=== PATIENT | male | born 1980 | race Caucasian/White ===

== ENCOUNTER 2017-11-11 06:13 | Emergency (ER) | payer OTHER, BC ==
[2017-11-11 06:48] LABS: BEDSIDE GLUCOSE 137 MG/DL (70-105)
[2017-11-11 07:01] LABS: BEDSIDE GLUCOSE 126 MG/DL (70-105)
[2017-11-11] MEDS: LORazepam 2 MG/ML VIAL (J2060) IM ×2 (07:04)
[2017-11-11] MEDS: KETOROLAC 30 MG/ML VIAL (J1885) IV ×2 (07:42)
[2017-11-11 07:59] LABS: BASO % 0.5 % (0.0-1.0); EOS % 0.4 % (0.0-3.0); HEMATOCRIT 43.9 % (42.0-52.0); HEMOGLOBIN 15.3 g/dl (13.5-17.5); IMMATURE GRANULOCYTE % 0.4 % (0-3.0); LYMPH # 0.8 10^3/uL (1.5-4.5); LYMPH % 10.3 % (24.0-44.0); MEAN CORPUSCULAR HGB CONC 34.9 g/dl (32.0-36.5); MEAN CORPUSCULAR VOLUME 88.9 fl (80.0-96.0); MONO # 0.5 10^3/uL (0.0-0.8); MONO % 7.2 % (0.0-5.0); NEUTROPHILS % 81.2 % (36.0-66.0); PLATELET COUNT, AUTOMATED 209 10^3/uL (150-450); RED BLOOD COUNT 4.94 10^6/uL (4.30-6.10); RED CELL DISTRIBUTION WIDTH 12.7 % (11.5-14.5); WHITE BLOOD COUNT 7.5 10^3/uL (4.0-10.0)
[2017-11-11 08:13] LABS: D-DIMER QUANT 369.2 ng/ml (<500)
[2017-11-11 08:37] LABS: ALBUMIN 4.4 GM/DL (3.2-5.2); ALBUMIN/GLOBULIN RATIO 1.05 (1.00-1.93); ALKALINE PHOSPHATASE 132 U/L (45-117); ALT/SGPT 182 U/L (12-78); ANION GAP 11 MEQ/L (8-16); AST/SGOT 174 U/L (7-37); BILIRUBIN,DIRECT 0.3 MG/DL (0.0-0.2); BLOOD UREA NITROGEN 15 MG/DL (7-18); CALCIUM LEVEL 9.3 MG/DL (8.5-10.1); CARBON DIOXIDE LEVEL 24 MEQ/L (21-32); CHLORIDE LEVEL 104 MEQ/L (98-107); CPK CREATINE PHOSPHOKINASE 422 U/L (39-308); CREATININE FOR GFR 0.81 MG/DL (0.70-1.30); GLOMERULAR FILTRATION RATE > 60.0 (>60); GLUCOSE, FASTING 124 MG/DL (70-100); POTASSIUM SERUM 3.5 MEQ/L (3.5-5.1); SODIUM LEVEL 139 MEQ/L (136-145); TOTAL PROTEIN 8.6 GM/DL (6.4-8.2); TROPONIN I < 0.02 NG/ML (< 0.10)
[2017-11-11 08:43] LABS: CK-MB VALUE MASS 1.8 NG/ML (<3.6); MB/CK RELATIVE INDEX 0.42 (< OR =4)
[2017-11-11 08:45] LABS: ESTIMATED AVERAGE GLUCOSE 117 MG/DL (60-110); HEMOGLOBIN A1c 5.7 %
[2017-11-11] MEDS: CHLORTHALIDONE 12.5MG PER 1/2 TABLET PO ×2 (09:54)
[2017-11-12 09:20] LABS: HEPATITIS B SURFACE ANTIGEN NEGATIVE (NEGATIVE)
[2017-11-12 09:48] LABS: HEPATITIS C VIRUS ABY INDEX 0.1 INDEX (<0.8)
[2017-11-12 09:48] LABS: HEPATITIS B CORE ANTIBODY IGM NEGATIVE (NEGATIVE)
[2017-11-12 09:50] LABS: HEPATITIS A ANTIBODY IGM NEGATIVE (NEGATIVE)
== END 2017-11-11 10:58 | disposition home or self-care (01) ==
LOC: M ED 06:13
DX: F41.9 Anxiety disorder, unspecified (principal); Z79.899 Other long term (current) drug therapy
CPT/HCPCS: J1885

== ENCOUNTER 2018-01-05 11:08 | Emergency (ER) | payer OTHER ==
[2018-01-05] MEDS: NORCO, ANEXSIA 5/325MG TABLET (HYDROcodone/ACETAMINOPHEN) PO (11:46)
[2018-01-05] MEDS: LIDOCAINE VISCOUS 2% SOLN 15ML UDC SSP (11:46)
== END 2018-01-05 11:55 | disposition home or self-care (01) ==
LOC: M ED 11:08
DX: K04.7 Periapical abscess without sinus (principal); L03.211 Cellulitis of face; I10 Essential (primary) hypertension; Z79.899 Other long term (current) drug therapy
CPT/HCPCS: 99282

== ENCOUNTER → 2018-01-10 | Outpatient (REF) | payer OTHER ==
[2018-01-10 20:09] LABS: ALBUMIN 4.4 GM/DL (3.2-5.2); ALKALINE PHOSPHATASE 164 U/L (45-117); ALT/SGPT 238 U/L (12-78); ANION GAP 10 MEQ/L (8-16); AST/SGOT 269 U/L (7-37); BILIRUBIN,TOTAL 0.6 MG/DL (0.2-1.0); BLOOD UREA NITROGEN 8 MG/DL (7-18); CALCIUM LEVEL 9.1 MG/DL (8.5-10.1); CARBON DIOXIDE LEVEL 28 MEQ/L (21-32); CHLORIDE LEVEL 97 MEQ/L (98-107); CHOLESTEROL LEVEL 295 MG/DL (<200); CHOLESTEROL RISK RATIO 2.322 (<5); CREATININE FOR GFR 0.99 MG/DL (0.70-1.30); GLOMERULAR FILTRATION RATE > 60.0 (>60); GLUCOSE, FASTING 159 MG/DL (70-100); HDL CHOLESTEROL 127 MG/DL (>40); NON-HDL-C 168 MG/DL; POTASSIUM SERUM 3.8 MEQ/L (3.5-5.1); SODIUM LEVEL 135 MEQ/L (136-145); TOTAL PROTEIN 8.8 GM/DL (6.4-8.2); TRIGLYCERIDES LEVEL 95 MG/DL (<150)
== END ==
LOC: M SFHCADAM 12:56
DX: K76.0 Fatty (change of) liver, not elsewhere classified (principal)
CPT/HCPCS: 80053

== ENCOUNTER → 2018-04-27 | Outpatient (CLI) | payer OTHER ==
[2018-04-27 17:50] LABS: ALBUMIN 4.5 GM/DL (3.2-5.2); ALBUMIN/GLOBULIN RATIO 1.18 (1.00-1.93); ALKALINE PHOSPHATASE 103 U/L (45-117); ALT/SGPT 111 U/L (12-78); AST/SGOT 71 U/L (7-37); BILIRUBIN,DIRECT 0.2 MG/DL (0.0-0.2); BILIRUBIN,TOTAL 0.6 MG/DL (0.2-1.0); FERRITIN 189 NG/ML (26-388); GAMMA GLUTAMYLTRANSPEPTIDASE 191 U/L (15-85); IRON (FE) 90 UG/DL (65-175); PERCENT SATURATION 21.2 % (19.7-50.0); TOTAL IRON BINDING CAPACITY 425 UG/DL (250-450); TOTAL PROTEIN 8.3 GM/DL (6.4-8.2)
[2018-04-29 11:43] LABS: HEPATITIS B SURFACE ANTIBODY POSITIVE (POSITIVE)
[2018-05-01 00:08] LABS: ALPHA 1 ANTITRYPSIN 133 mg/dL (90-200); ANTI-MITOCHONDRIAL ANTIBODY 3.7 Units (0.0-20.0); ANTINUCLEAR ANTIBODIES DIRECT Negative (Negative); HEPATITIS A IgG TOTAL Negative (Negative); LIVER-KIDNEY MICROSOMAL ABY 1.5 Units (0.0-20.0)
[2018-05-01 00:08] LABS: ANTI-SMOOTH MUSCLE ANTIBODY 10 Units (0-19)
== END ==
LOC: M ADAMS 14:52
DX: R94.5 Abnormal results of liver function studies (principal)
CPT/HCPCS: 82977

== ENCOUNTER → 2018-08-09 | Outpatient (REF) | payer OTHER ==
[~2018-08-09] MED LIST: BUSP10TA; CHLO125TA PO; CHLO25CA PO; CHLO25TA PO; CLEO300C2 PO; LEXA1TAB2 PO; LIDO1SOL7 SSP
[2018-08-09 19:39] LABS: ALBUMIN 4.2 GM/DL (3.2-5.2); ALT/SGPT 326 U/L (12-78); BILIRUBIN,TOTAL 0.5 MG/DL (0.2-1.0); BLOOD UREA NITROGEN 10 MG/DL (7-18); CALCIUM LEVEL 9.4 MG/DL (8.5-10.1); CARBON DIOXIDE LEVEL 28 MEQ/L (21-32); CHLORIDE LEVEL 98 MEQ/L (98-107); GLOMERULAR FILTRATION RATE > 60.0 (>60); GLUCOSE, FASTING 85 MG/DL (70-100); POTASSIUM SERUM 3.6 MEQ/L (3.5-5.1); SODIUM LEVEL 137 MEQ/L (136-145)
== END ==
LOC: M SFHCADAM 16:22
PROVIDERS: ATTEND Physician Assistant Medical
DX: K76.0 Fatty (change of) liver, not elsewhere classified (principal)

== ENCOUNTER → 2018-08-16 | Outpatient (REF) | payer OTHER | LOC: M SFHCADAM 14:15 | PROVIDERS: ATTEND Physician Assistant Medical | DX: F10.10 Alcohol abuse, uncomplicated (principal); K70.9 Alcoholic liver disease, unspecified ==

== ENCOUNTER → 2018-09-12 | Outpatient (CLI) | payer OTHER ==
[2018-09-12 20:05] LABS: BASO # 0.1 10^3/uL (0.0-0.2); BASO % 1.1 % (0.0-1.0); EOS # 0.3 10^3/uL (0.0-0.50); HEMOGLOBIN 16.1 g/dl (13.5-17.5); LYMPH # 1.8 10^3/uL (1.5-4.5); LYMPH % 26.3 % (24.0-44.0); MEAN CORPUSCULAR HEMOGLOBIN 31.1 pg (27.0-33.0); MEAN CORPUSCULAR HGB CONC 34.3 g/dl (32.0-36.5); MEAN CORPUSCULAR VOLUME 90.9 fl (80.0-96.0); MONO # 0.8 10^3/uL (0.0-0.8); MONO % 11.3 % (0.0-5.0); PLATELET COUNT, AUTOMATED 296 10^3/uL (150-450); RED BLOOD COUNT 5.17 10^6/uL (4.30-6.10)
[2018-09-12 20:13] LABS: ALBUMIN 4.3 GM/DL (3.2-5.2); BILIRUBIN,DIRECT 0.1 MG/DL (0.0-0.2); BILIRUBIN,TOTAL 0.5 MG/DL (0.2-1.0); TOTAL PROTEIN 7.7 GM/DL (6.4-8.2)
== END ==
LOC: M ADAMS 17:00
PROVIDERS: ATTEND Internal Medicine Gastroenterology
DX: R94.5 Abnormal results of liver function studies (principal)

== ENCOUNTER 2018-10-14 04:08 | Emergency (ER) | payer OTHER ==
[~2018-10-14] VITALS: Ht 177.8 cm; Wt 84.1 kg
[2018-10-14] MEDS ORDERED: CHLO125TA (04:17)
[2018-10-14] MEDS ORDERED: OXAZ10CA3 (04:17)
[2018-10-14] MEDS ORDERED: FLUO20CA19 (04:17)
[2018-10-14] MEDS ORDERED: VITA100T8 (04:17)
[2018-10-14] MEDS ORDERED: NS 1,000 ML IV ONE ×2 (04:45→07:15)
[2018-10-14 04:46] LABS: BASO # 0.1 10^3/uL (0.0-0.2); BASO % 0.3 % (0.0-1.0); EOS % 0.1 % (0.0-3.0); HEMATOCRIT 51.6 % (42.0-52.0); HEMOGLOBIN 18.6 g/dl (13.5-17.5); LYMPH # 1.6 10^3/uL (1.5-4.5); LYMPH % 10.4 % (24.0-44.0); MEAN CORPUSCULAR HEMOGLOBIN 30.4 pg (27.0-33.0); MEAN CORPUSCULAR VOLUME 84.5 fl (80.0-96.0); MONO % 6.7 % (0.0-5.0); NEUTROPHILS # 12.8 10^3/uL (1.8-7.7); PLATELET COUNT, AUTOMATED 314 10^3/uL (150-450); RED BLOOD COUNT 6.11 10^6/uL (4.30-6.10); WHITE BLOOD COUNT 15.6 10^3/uL (4.0-10.0)
[2018-10-14 05:13] LABS: ALBUMIN 4.6 GM/DL (3.2-5.2); ALT/SGPT 88 U/L (12-78); BILIRUBIN,DIRECT 0.4 MG/DL (0.0-0.2); BILIRUBIN,TOTAL 1.1 MG/DL (0.2-1.0); BLOOD UREA NITROGEN 17 MG/DL (7-18); CALCIUM LEVEL 9.3 MG/DL (8.5-10.1); CARBON DIOXIDE LEVEL 20 MEQ/L (21-32); CHLORIDE LEVEL 94 MEQ/L (98-107); CREATININE FOR GFR 1.23 MG/DL (0.70-1.30); GLOMERULAR FILTRATION RATE > 60.0 (>60); GLUCOSE, FASTING 154 MG/DL (70-100); LIPASE 145 U/L (73-393); POTASSIUM SERUM 3.1 MEQ/L (3.5-5.1); SODIUM LEVEL 135 MEQ/L (136-145); TOTAL PROTEIN 9.1 GM/DL (6.4-8.2)
[2018-10-14] MEDS ORDERED: LORazepam 2 MG/ML VIAL (J2060) IV STA (05:27)
[2018-10-14] MEDS ORDERED: ONDANSETRON 4MG/2ML VIAL (J2405) IV ONE (05:30)
[2018-10-14 05:32] LABS: ETHYL ALCOHOL (ETHANOL) 0.032 % (0.000-0.010)
[2018-10-14 06:45] LABS: VENOUS BASE EXCESS 1.6 (-2.0-2.0); VENOUS HCO3 23.5 MEQ/L (23.0-27.0); VENOUS O2 SATURATION 77.6 % (60.0-80.0); VENOUS PARTIAL PRESSURE CO2 30.7 mmHg (38.0-50.0); VENOUS PARTIAL PRESSURE O2 41.3 mmHg (30.0-50.0); VENOUS PH 7.502 UNITS (7.330-7.430); VENOUS STANDARD HCO3 25.2 MEQ/L; VENOUS TOTAL CO2 24.5 MEQ/L (24.0-28.0)
[2018-10-14] MEDS ORDERED: OXAZEPAM 15 MG CAP PO ONE (07:15)
[2018-10-14] MEDS ORDERED: POTASSIUM CHLORIDE 10 MEQ SR TABLET PO ONE (07:30)
[2018-10-14] MEDS ORDERED: ONDA4TAB6 PO (08:42)
[2018-10-14 08:45] VITALS: BP 138/88
== END 2018-10-14 09:03 | disposition home or self-care (01) ==
LOC: M ED 04:08
DX: F10.239 Alcohol dependence with withdrawal, unspecified (principal); R11.2 Nausea with vomiting, unspecified; Z79.899 Other long term (current) drug therapy
CPT/HCPCS: 80048; 80076; 82803; 83690; 85025; 96360; 96374; 96375; 99285; G0480; J2060; J2405

== ENCOUNTER → 2018-11-05 | Outpatient (REF) | payer OTHER ==
[~2018-11-05] MED LIST changes: +CHLO125TA; +FLUO20CA19; +ONDA4TAB6 PO; +OXAZ10CA3; +VITA100T8
[2018-11-05 19:45] LABS: HEMATOCRIT 43.4 % (42.0-52.0); HEMOGLOBIN 15.3 g/dl (13.5-17.5); MEAN CORPUSCULAR HEMOGLOBIN 31.3 pg (27.0-33.0); MEAN CORPUSCULAR HGB CONC 35.3 g/dl (32.0-36.5); MEAN CORPUSCULAR VOLUME 88.8 fl (80.0-96.0); PLATELET COUNT, AUTOMATED 438 10^3/uL (150-450); RED BLOOD COUNT 4.89 10^6/uL (4.30-6.10); WHITE BLOOD COUNT 8.3 10^3/uL (4.0-10.0)
[2018-11-05 20:05] LABS: ALT/SGPT 82 U/L (12-78); BILIRUBIN,TOTAL 0.3 MG/DL (0.2-1.0); BLOOD UREA NITROGEN 14 MG/DL (7-18); CALCIUM LEVEL 9.2 MG/DL (8.5-10.1); CARBON DIOXIDE LEVEL 31 MEQ/L (21-32); CHLORIDE LEVEL 103 MEQ/L (98-107); GLOMERULAR FILTRATION RATE > 60.0 (>60); GLUCOSE, FASTING 73 MG/DL (70-100); MAGNESIUM LEVEL 2.3 MG/DL (1.8-2.4); POTASSIUM SERUM 3.4 MEQ/L (3.5-5.1); SODIUM LEVEL 141 MEQ/L (136-145); TOTAL PROTEIN 7.6 GM/DL (6.4-8.2)
[2018-11-05 20:13] LABS: VITAMIN B12 LEVEL 744 PG/ML (247-911)
== END ==
LOC: M SFHCADAM 18:23
DX: K20.9 Esophagitis, unspecified (principal); K76.0 Fatty (change of) liver, not elsewhere classified; E87.6 Hypokalemia; F10.20 Alcohol dependence, uncomplicated

== ENCOUNTER → 2019-12-02 | Outpatient (REF) | payer OTHER ==
[~2019-12-02] MED LIST changes: -FLUO20CA19; +FLUO20CA22; -LIDO1SOL7 SSP; +LIDO2SOL17 SSP
[2019-12-02 17:40] LABS: HEMATOCRIT 48.2 % (42.0-52.0); HEMOGLOBIN 16.7 g/dl (13.5-17.5); MEAN CORPUSCULAR HEMOGLOBIN 31.7 pg (27.0-33.0); MEAN CORPUSCULAR HGB CONC 34.6 g/dl (32.0-36.5); MEAN CORPUSCULAR VOLUME 91.6 fl (80.0-96.0); PLATELET COUNT, AUTOMATED 282 10^3/uL (150-450); RED BLOOD COUNT 5.26 10^6/uL (4.30-6.10)
[2019-12-02 17:51] LABS: PROTHROMBIN TIME 12.9 SECONDS (11.8-14.0)
[2019-12-02 18:08] LABS: ALBUMIN 4.2 GM/DL (3.2-5.2); ALT/SGPT 341 U/L (12-78); BILIRUBIN,TOTAL 1.3 MG/DL (0.2-1.0); BLOOD UREA NITROGEN 7 MG/DL (7-18); CALCIUM LEVEL 9.4 MG/DL (8.5-10.1); CARBON DIOXIDE LEVEL 27 MEQ/L (21-32); CHLORIDE LEVEL 99 MEQ/L (98-107); CREATININE FOR GFR 0.87 MG/DL (0.70-1.30); GLOMERULAR FILTRATION RATE > 60.0 (>60); GLUCOSE, FASTING 109 MG/DL (70-100); MAGNESIUM LEVEL 1.7 MG/DL (1.8-2.4); POTASSIUM SERUM 3.7 MEQ/L (3.5-5.1); SODIUM LEVEL 136 MEQ/L (136-145); TOTAL PROTEIN 8.2 GM/DL (6.4-8.2)
[2019-12-02 18:10] LABS: VITAMIN B12 LEVEL 746 PG/ML (247-911)
== END ==
LOC: M SFHCADAM 15:50
PROVIDERS: ATTEND Family Medicine
DX: I10 Essential (primary) hypertension (principal); K70.9 Alcoholic liver disease, unspecified; E87.6 Hypokalemia

== ENCOUNTER 2020-12-02 15:43 | Inpatient (IN) | payer OTHER ==
[~2020-12-02] VITALS: Ht 177.8 cm; Wt 83.0 kg
[~2020-12-02 15:43] MED LIST changes: -FLUO20CA22; +FLUO20CA22 PO; -OXAZ10CA3; +OXAZ10CA3 PO
[2020-12-02] MEDS ORDERED: PANT40TA29 PO (16:00)
[2020-12-02] MEDS ORDERED: PROP60CA PO (16:00)
[2020-12-02] MEDS ORDERED: SUCR1ORA2 PO (16:00)
[2020-12-02] MEDS ORDERED: LORazepam 2 MG/ML VIAL IV STA (16:19)
[2020-12-02] MEDS ORDERED: NS 1,000 ML IV ONE (16:20)
[2020-12-02] MEDS ORDERED: KCL 10MEQ/100ML SWI (KRUN) 10 MEQ in IV 1 EA IV ONE (16:25)
[2020-12-02] MEDS ORDERED: POTASSIUM CHLORIDE 10 MEQ SR TABLET PO ONE (16:25)
[2020-12-02] MEDS ORDERED: ISOVUE-370 76% 100ML VIAL As Ordered ONE (16:32)
[2020-12-02 17:15] LABS: INR 1.09; PROTHROMBIN TIME 14.4 SECONDS (12.5-14.3)
--- NOTE | 2020-12-02 17:40 | REPVR ---
PROCEDURE INFORMATION: Exam: CT Abdomen And Pelvis With Contrast Exam date and time: 12/02/2020 5:07 PM Age: 40 years old Clinical indication: Condition or disease; Pancreatic condition; Pancreatitis TECHNIQUE: Imaging protocol: Computed tomography of the abdomen and pelvis with contrast. Axial, coronal and sagittal reformatted images were created and reviewed. Radiation optimization: All CT scans at this facility use at least one of these dose optimization techniques: automated exposure control; mA and/or kV adjustment per patient size (includes targeted exams where dose is matched to clinical indication); or iterative reconstruction. Contrast material: ISOVUE 370; Contrast volume: 100 ml; Contrast route: INTRAVENOUS (IV); COMPARISON: GALLBLADDER US 11/11/2017 9:11 AM FINDINGS: Liver: Mild hepatomegaly. Diffuse hepatic steatosis. Gallbladder and bile ducts: No radiodense gallstones. No biliary ductal dilatation. Pancreas: Questionable subtle edema adjacent to the uncinate process. Spleen: Unremarkable. Adrenal glands: Normal. No mass. Kidneys and ureters: No mass. No radiodense calculi. No hydronephrosis. Stomach and bowel: No bowel wall thickening. No obstruction. No pneumatosis. Appendix: Normal. Intraperitoneal space: No free fluid. No organized fluid collection. No free air. Vasculature: Unremarkable. No aneurysm. Lymph nodes: No pathologically enlarged lymph nodes. Urinary bladder: Unremarkable as visualized. Reproductive: Unremarkable. Bones/joints: No acute osseous abnormality. Soft tissues: Unremarkable. IMPRESSION: 1. Questionable subtle edema adjacent to the pancreatic uncinate process. Correlate with serum amylase and lipase levels. 2. Additional findings, as above. Electronically signed by: Gerald Andrews On 12/02/2020 17:40:17 PM
[2020-12-02 18:21] LABS: RSV AMPLIFICATION NEGATIVE (NEGATIVE)
[2020-12-02] MEDS ORDERED: MAALOX 30 ML SUSP *UDC PO PRN (19:00)
[2020-12-02] MEDS ORDERED: MORPHINE 2 MG/ML 1ML VIAL (J2270) IV PRN (19:00)
[2020-12-02] MEDS ORDERED: LORazepam 2 MG TAB PO PRN (19:00)
[2020-12-02] MEDS ORDERED: ONDANSETRON 4MG/2ML VIAL IV PRN (19:00)
[2020-12-02] MEDS ORDERED: MOM 30ML SUSPENSION UDC PO PRN (19:00)
[2020-12-02] MEDS ORDERED: ACETAMINOPHEN TAB 650MG DOSE (2X325MG) PO PRN (19:00)
[2020-12-02] MEDS ORDERED: LR 1,000 ML IV SCH (19:00)
--- NOTE | 2020-12-02 19:44 | HPEPDOC ---
[facility] Medical History & Physical Date of Admission Dec 02, 2020 Date of Service: Dec 02, 2020 Attending Physician: ELLEN KNAPP MD History and Physical CHIEF COMPLAINT: [40 y/o male presents to the ED after an appt with his pcp] HISTORY OF PRESENT ILLNESS: [This is a 40 y/o male with a pmh of htn, depression/anxiety and etoh abuse who presents to the ED today 12/02 after an appointment with his pcp. Patient is an alcoholic who recently quit drinking cold turkey on 11/29. Patient states that he began developing symptoms of tremu lousness, weakness, anxiety, nausea and vomiting that night and have not gotten any better. Patient states that these symptoms prompted him to make an appointment with his pcp. As of my evaluation, patient states that his primary complaints at the moment are his weakness, fatigue and tremulousness. Patient endorses abdominal pain in his RUQ only with movement, states that the pain is nil when he is still. The pain does not radiate. Patient also endorses some chest pain located in his lower sternum/epigastrum that comes and goes and does not radiate as well. Patient states that he is still having on and off nausea and vomiting, with his last episode of emesis being this morning. Patient denies fever, chills, syncope, seizures, hematemesis, hallucinations, diarrhea, constipation, paresthesias, headache, diplopia.] PAST MEDICAL HISTORY: 1. [Please see HPI PAST SURGICAL HISTORY: 1. [Reviewed - none SOCIAL HISTORY: Tobacco use:[Denies] ETOH: [5+ beers a day previously, stopped drinking 3 days ago] Illicit drug use: [Denies] FAMILY HISTORY: Prostate ca, htn, a-fib, dm ALLERGIES: Please see below. REVIEW OF SYSTEMS: CONSTITUTIONAL: [See HPI]. HEENT: [Denies URI sx]. CARDIOVASCULAR: [See HPI]. RESPIRATORY: [Denies sob, cough]. GASTROINTESTINAL: [See HPI]. GENITOURINARY: [Denies dysuria]. SKIN: [Denies rash]. MUSCULOSKELETAL: [Denies acute joint pain]. NEUROLOGICAL: [See HPI]. PSYCHIATRIC: [Admits to anxiety]. ENDOCRINE: [Denies hx of DM]. HEMATOLOGIC/LYMPHATIC: [Denies easy bruising]. HOME MEDICATIONS: Please see below. PHYSICAL EXAMINATION: VITAL SIGNS: Please see below GENERAL APPEARANCE: [This is a 40 year old male who is visibly tremulous. He is laying in bed in no respiratory distress.]. HEENT: [No mass or lesion. EOMI. Mild scleral icterus. Nares patent. Oral mucosa dry without erythema.]. CARDIOVASCULAR: [Tachy rate, regular rhythm. No murmurs, rubs, gallops]. LUNGS: [good air flow auscultated. no wheezing, rales, rhonchi.]. ABDOMEN: [Soft, mildly tender to ruq with deep palpation. no organomegaly appr eciated.]. MUSCULOSKELETAL: [No joint deformity]. EXTREMITIES: [No peripheral edema noted. No overlying skin changes. Pulses itn act.]. NEUROLOGICAL: [Sensation intact. Speech clear. A+Ox3. No focal deficits.]. PSYCHIATRIC: [Mood and affect appear appropriate.]. LABORATORY DATA: See below. IMAGING: [FINDINGS: Liver: Mild hepatomegaly. Diffuse hepatic steatosis. Gallbladder and bile ducts: No radiodense gallstones. No biliary ductal dilatation. Pancreas: Questionable subtle edema adjacent to the uncinate process. Spleen: Unremarkable. Adrenal glands: Normal. No mass. Kidneys and ureters: No mass. No radiodense calculi. No hydronephrosis. Stomach and bowel: No bowel wall thickening. No obstruction. No pneumatosis. Appendix: Normal. Intraperitoneal space: No free fluid. No organized fluid collection. No free air. Vasculature: Unremarkable. No aneurysm. Lymph nodes: No pathologically enlarged lymph nodes. Urinary bladder: Unremarkable as visualized. Reproductive: Unremarkable. Bones/joints: No acute osseous abnormality. Soft tissues: Unremarkable. IMPRESSION: 1. Questionable subtle edema adjacent to the pancreatic uncinate process. Correlate with serum amylase and lipase levels. 2. Additional findings, as above. ] MICROBIOLOGY: Please see below. ASSESSMENT: [This is a 40 y/o male with a pmh of htn, depression/anxiety and etoh abuse who quit drinking cold turkey 3 days ago and has been having symptoms of abdominal discomfort, nausea, vomiting, tremulousness, fatigue, weakness and anxiety. Patient saw his pcp who referred him to the ED after abnormal lab work. CT performed in the ED as stated above shows hepatic steatosis and questionable pancreatitis]. . PLAN: 1. [ETOH Withdrawal - [facility] protocol - Serax 20mg tid scheduled - Admit to PCU on tele 2. Mild acute alcoholic pancreatitis - Elevated amylase, lipase and pancreatic edema noted on ct abd/pelvis - Amylase, lipase ordered, will trend - Baseline electrolytes, liver enzymes ordered, will trend - Will begin maintenance fluids with LR 120mL/hr with 20meQ of K - IV zofran, IV protonix, carafate d/t several days of nausea and vomiting - Tylenol for mild pain, morphine for severe breakthrough pain - Clear liquid diet as patient is not having severe symptoms 3. Hypokalemia - Patient received 40 oral in ED, repeat K still 2.8 - Will give K in fluid as stated, will also give 40 oral now and tomorrow morning 0600 4. Alcoholic liver dz - AST to ALT ratio 2:1 indicative of alcoholic liver disease as well as liver steatosis on ct scan - Patient does not appear to be in decompensated liver failure - Will monitor 5. HTN - continue propranolol 6. Depression/anxiety - continue fluoxetine 7. DVT prophylaxis - teds and scds ]. Vital Signs Vital Signs Date Time Temp Pulse Resp B/P (MAP) Pulse Ox O2 Delivery O2 Flow Rate FiO2 12/02/20 18:50 108 18 141/83 (102) 95 Room Air 12/02/20 15:44 98.3 Laboratory Data Labs 24H Laboratory Tests 2 12/02/20 16:19: Prothrombin Time 14.4H, Prothromb Time International Ratio 1.09, Activated Partial Thromboplast Time 25.0, Gamma Glutamyl Transferase 1396H 12/02/20 16:26: Coronavirus (COVID-19)(PCR) NEGATIVE, Influenza Type A (RT-PCR) NEGATIVE, Influenza Type B (RT-PCR) NEGATIVE, Respiratory Syncytial Virus (PCR) NEGATIVE Home Medications Scheduled Fluoxetine Hcl (Fluoxetine HCl) 20 Mg Cap, 20 MG PO DAILY Oxazepam (Oxazepam) 10 Mg Cap, 10 MG PO TID Pantoprazole Sodium (Pantoprazole Sodium) 40 Mg Tablet.dr, 40 MG PO BID NEW MED - HAS NOT STARTED Propranolol HCl (Propranolol HCl ER) 60 Mg Cap.sa.24h, 60 MG PO DAILY NEW MED - HAS NOT STARTED Sucralfate (Sucralfate) 1 Gm/10 Ml Oral.susp, 10 ML PO ACHS NEW MED - HAS NOT STARTED Allergies Coded Allergies: No Known Allergies (Unverified , 11/11/17) A-FIB/CHADSVASC A-FIB History Current/History of A-Fib/PAF?: No LAWRENCE WRIGHT Dec 02, 2020 19:43
[2020-12-02 20:25] LABS: ALBUMIN 3.3 GM/DL (3.2-5.2); ALT/SGPT 211 U/L (12-78); AMYLASE 154 U/L (25-115); BILIRUBIN,TOTAL 2.7 MG/DL (0.2-1.0); BLOOD UREA NITROGEN 23 MG/DL (7-18); CALCIUM LEVEL 9.2 MG/DL (8.5-10.1); CARBON DIOXIDE LEVEL 31 MEQ/L (21-32); CHLORIDE LEVEL 89 MEQ/L (98-107); CK-MB VALUE MASS < 1.0 NG/ML (<3.6); CPK CREATINE PHOSPHOKINASE 267 U/L (39-308); CREATININE FOR GFR 0.97 MG/DL (0.70-1.30); GLOMERULAR FILTRATION RATE > 60.0 (>60); GLUCOSE, FASTING 124 MG/DL (70-100); LIPASE 1051 U/L (73-393); MB/CK RELATIVE INDEX 0.37 (< OR =4); POTASSIUM SERUM 2.8 MEQ/L (3.5-5.1); SODIUM LEVEL 131 MEQ/L (136-145); TOTAL PROTEIN 7.1 GM/DL (6.4-8.2); TROPONIN I < 0.02 NG/ML (< 0.10)
[2020-12-02] MEDS ORDERED: POTASSIUM CHLORIDE 10% LIQ 20 MEQ/15 ML UDC PO ONE (20:35)
[2020-12-02] MEDS: DOCUSATE SODIUM 100MG CAPSULE PO SCH (20:36)
[2020-12-02] MEDS: THIAMINE 100 MG TAB PO SCH (20:36)
[2020-12-02] MEDS: OXAZEPAM 10 MG CAP PO SCH (20:38)
[2020-12-02 21:00] VITALS: BP 135/89
[2020-12-02] MEDS: PANTOPRAZOLE 40MG VIAL (C9113 PER 1) IV SCH (21:24)
[2020-12-02 22:00] VITALS: O2SAT 94
[2020-12-02 23:00] VITALS: O2SAT 95
[2020-12-02] MEDS: POTASSIUM CHLORIDE INJ 20 MEQ in LR 1,000 ML IV SCH (23:33)
[2020-12-02] MEDS: SUCRALFATE SUSP 1GM/10ML UD PO SCH (23:33)
[2020-12-02 23:38] VITALS: BP 126/72
[2020-12-03] VITALS (17 sets, daily range): BP systolic 124–166; BP diastolic 72–98; O2SAT 92–95
[2020-12-03 03:38] LABS: HEMATOCRIT 41.8 % (42.0-52.0); MEAN CORPUSCULAR HGB CONC 34.7 g/dl (32.0-36.5); MEAN CORPUSCULAR VOLUME 95.2 fl (80.0-96.0); RED BLOOD COUNT 4.39 10^6/uL (4.30-6.10); WHITE BLOOD COUNT 5.3 10^3/uL (4.0-10.0)
[2020-12-03 03:39] LABS: HEMOGLOBIN 14.5 g/dl (13.5-17.5); PLATELET COUNT, AUTOMATED 126 10^3/uL (150-450)
[2020-12-03 03:47] LABS: INR 1.18; PARTIAL THROMBOPLASTIN TIME 26.6 SECONDS (24.2-38.5); PROTHROMBIN TIME 15.3 SECONDS (12.5-14.3)
[2020-12-03 04:25] LABS: ALT/SGPT 189 U/L (12-78); BILIRUBIN,TOTAL 2.6 MG/DL (0.2-1.0); BLOOD UREA NITROGEN 19 MG/DL (7-18); CALCIUM LEVEL 8.7 MG/DL (8.5-10.1); CARBON DIOXIDE LEVEL 33 MEQ/L (21-32); CHLORIDE LEVEL 92 MEQ/L (98-107); CK-MB VALUE MASS < 1.0 NG/ML (<3.6); CPK CREATINE PHOSPHOKINASE 217 U/L (39-308); CREATININE FOR GFR 0.92 MG/DL (0.70-1.30); GLOMERULAR FILTRATION RATE > 60.0 (>60); GLUCOSE, FASTING 96 MG/DL (70-100); LIPASE 999 U/L (73-393); MAGNESIUM LEVEL 2.4 MG/DL (1.8-2.4); MB/CK RELATIVE INDEX 0.46 (< OR =4); POTASSIUM SERUM 2.9 MEQ/L (3.5-5.1); SODIUM LEVEL 133 MEQ/L (136-145); TOTAL PROTEIN 6.6 GM/DL (6.4-8.2); TROPONIN I < 0.02 NG/ML (< 0.10)
[2020-12-03] MEDS ORDERED: POTASSIUM CHLORIDE 10 MEQ SR TABLET PO ONE ×3 (05:15→10:00)
[2020-12-03] MEDS: POTASSIUM CHLORIDE INJ 20 MEQ in LR 1,000 ML IV SCH ×2 (07:40→15:46)
[2020-12-03] MEDS: SUCRALFATE SUSP 1GM/10ML UD PO SCH ×4 (07:40→21:27)
[2020-12-03] MEDS: PANTOPRAZOLE 40MG VIAL (C9113 PER 1) IV SCH ×2 (09:14→21:30)
[2020-12-03] MEDS: MULTIVITAMINS/MINERALS THERAP 1 TAB PO SCH (09:15)
[2020-12-03] MEDS: DOCUSATE SODIUM 100MG CAPSULE PO SCH ×2 (09:15→21:27)
[2020-12-03] MEDS: FLUoxetine 20 MG CAP PO SCH (09:15)
[2020-12-03] MEDS: OXAZEPAM 10 MG CAP PO SCH ×3 (09:15→21:27)
[2020-12-03] MEDS: THIAMINE 100 MG TAB PO SCH ×2 (09:15→21:27)
[2020-12-03] MEDS: FOLIC ACID 1 MG TAB PO SCH (09:15)
[2020-12-03] MEDS: PROPRANOLOL 60 MG LA CAP PO SCH (10:05)
--- NOTE | 2020-12-03 11:08 | IPNPDOC ---
Subjective Date Seen The patient was seen on 12/03/20. Subjective Chief Complaint/HPI Complains of shakiness and tremors. Still has some right upper quadant pain. reports had bowel movement after coming to the hospital. Has been able to tolerate clear liquids. No much appetite. No nausea or vomiting. Objective Physical Examination General Exam: Positive: Alert, Cooperative, No Acute Distress, Other (tremors) Eye Exam: Positive: PERRLA, Conjunctiva & lids normal, EOMI; Negative: Sclera icteric ENT Exam: Positive: Atraumatic, Mucous membr. moist/pink, Pharynx Normal Neck Exam: Positive: Supple; Negative: JVD, thyromegaly Chest Exam: Positive: Clear to auscultation, Normal air movement Heart Exam: Positive: Rate Normal, Regular Rhythm, Normal S1, Normal S2; Negative: Murmurs, Rubs Telemetry: Positive: No significant arrhythmia Abdomen Exam: Positive: Normal bowel sounds, Soft; Negative: Tenderness, Hepatospenomegaly Extremity Exam: Negative: Clubbing, Cyanosis, Edema Psych Exam: Positive: Memory Intact, Oriented x 3 Assessment /Plan Assessment This is a 40 y/o male with a pmh of HTN, depression/anxiety and etoh abuse who quit drinking cold turkey 3 days prior to admission and has been having symptoms of abdominal discomfort, nausea, vomiting, tremulousness, fatigue, weakness and anxiety. Patient saw his pcp who referred him to the ED after abnormal lab work. CT performed in the ED as stated above shows hepatic steatosis and mild pancreatic head edema suggestive of pancreatitis. he was admitted for alcohol withdrawal and acute pancreatitis. . ETOH Withdrawal [facility] protocol Serax 20mg tid scheduled thiamine, folate Acute alcoholic pancreatitis continue IVF, full liquid diet Morphine and zofran prn Hypokalemia getting replacements Alcoholic hepatitis. no need for steroids at this time. continue to monitor transaminases. HTN propranolol Depression/anxiety fluoxetine Plan/VTE VTE Prophylaxis Ordered?: Yes VS, I&O, 24H, Fishbone Vital Signs/I&O Vital Signs Date Time Temp Pulse Resp B/P (MAP) Pulse Ox O2 Delivery O2 Flow Rate FiO2 12/03/20 07:58 97.8 87 18 130/80 (97) 97 Room Air I&O- Last 24 Hours up to 6 AM 12/03/20 06:00 Intake Total 2060 ml Output Total 450 ml Balance 1610 ml Laboratory Data 24H LABS Laboratory Tests 2 12/02/20 16:19: Prothrombin Time 14.4H, Prothromb Time International Ratio 1.09, Activated Partial Thromboplast Time 25.0, Gamma Glutamyl Transferase 1396H 12/02/20 16:26: Coronavirus (COVID-19)(PCR) NEGATIVE, Influenza Type A (RT-PCR) NEGATIVE, Influenza Type B (RT-PCR) NEGATIVE, Respiratory Syncytial Virus (PCR) NEGATIVE 12/02/20 19:33: Anion Gap 11, Glomerular Filtration Rate > 60.0, Lactic Acid Level 1.3, Calcium Level 9.2#, Total Bilirubin 2.7H, Aspartate Amino Transf (AST/SGOT) 434H, Alanine Aminotransferase (ALT/SGPT) 211H, Alkaline Phosphatase 141H, Total Creatine Kinase 267, Creatine Kinase MB < 1.0, Creatine Kinase MB Relative Index 0.37, Troponin I < 0.02, Total Protein 7.1, Albumin 3.3#, Albumin/Globulin Ratio 0.9, Amylase Level 154H, Lipase 1051H 12/03/20 03:30: Prothrombin Time 15.3H, Prothromb Time International Ratio 1.18, Activated Partial Thromboplast Time 26.6, Anion Gap 8, Glomerular Filtration Rate > 60.0, Calcium Level 8.7, Total Bilirubin 2.6H, Aspartate Amino Transf (AST/SGOT) 362H, Alanine Aminotransferase (ALT/SGPT) 189H, Alkaline Phosphatase 125H, Total Creatine Kinase 217, Creatine Kinase MB < 1.0, Creatine Kinase MB Relative Index 0.46, Troponin I < 0.02, Total Protein 6.6, Albumin 3.0L, Albumin/Globulin Ratio 0.8, Lipase 999H, Nucleated Red Blood Cells % (auto) 0.0, Magnesium Level 2.4 CBC/BMP Laboratory Tests 12/02/20 19:33 12/03/20 03:30 Microbiology Microbiology 12/02/20 Blood Culture, Received Pending STEPHANIE YOUNG MD Dec 03, 2020 11:08
[2020-12-03 14:30] LABS: BLOOD UREA NITROGEN 15 MG/DL (7-18); CALCIUM LEVEL 8.9 MG/DL (8.5-10.1); CARBON DIOXIDE LEVEL 28 MEQ/L (21-32); CHLORIDE LEVEL 98 MEQ/L (98-107); CREATININE FOR GFR 0.95 MG/DL (0.70-1.30); GLOMERULAR FILTRATION RATE > 60.0 (>60); GLUCOSE, FASTING 108 MG/DL (70-100); POTASSIUM SERUM 3.4 MEQ/L (3.5-5.1); SODIUM LEVEL 133 MEQ/L (136-145)
[2020-12-04] VITALS (12 sets, daily range): BP systolic 138–167; BP diastolic 94–106; O2SAT 93–95
[2020-12-04] MEDS: POTASSIUM CHLORIDE INJ 20 MEQ in LR 1,000 ML IV SCH ×2 (00:15→08:32)
[2020-12-04 06:08] LABS: HEMATOCRIT 40.1 % (42.0-52.0); HEMOGLOBIN 13.8 g/dl (13.5-17.5); MEAN CORPUSCULAR HEMOGLOBIN 33.2 pg (27.0-33.0); MEAN CORPUSCULAR HGB CONC 34.4 g/dl (32.0-36.5); MEAN CORPUSCULAR VOLUME 96.4 fl (80.0-96.0); PLATELET COUNT, AUTOMATED 111 10^3/uL (150-450); RED BLOOD COUNT 4.16 10^6/uL (4.30-6.10); WHITE BLOOD COUNT 3.8 10^3/uL (4.0-10.0)
[2020-12-04 06:29] LABS: ALBUMIN 2.6 GM/DL (3.2-5.2); ALT/SGPT 188 U/L (12-78); BILIRUBIN,TOTAL 1.5 MG/DL (0.2-1.0); BLOOD UREA NITROGEN 10 MG/DL (7-18); CALCIUM LEVEL 8.2 MG/DL (8.5-10.1); CARBON DIOXIDE LEVEL 29 MEQ/L (21-32); CHLORIDE LEVEL 104 MEQ/L (98-107); CREATININE FOR GFR 0.69 MG/DL (0.70-1.30); GLOMERULAR FILTRATION RATE > 60.0 (>60); GLUCOSE, FASTING 87 MG/DL (70-100); LIPASE 1170 U/L (73-393); MAGNESIUM LEVEL 2.2 MG/DL (1.8-2.4); POTASSIUM SERUM 3.5 MEQ/L (3.5-5.1); SODIUM LEVEL 139 MEQ/L (136-145); TOTAL PROTEIN 6.4 GM/DL (6.4-8.2)
[2020-12-04] MEDS: SUCRALFATE SUSP 1GM/10ML UD PO SCH ×5 (08:32→20:54)
[2020-12-04] MEDS: OXAZEPAM 10 MG CAP PO SCH ×3 (08:33→20:55)
[2020-12-04] MEDS: MULTIVITAMINS/MINERALS THERAP 1 TAB PO SCH (08:33)
[2020-12-04] MEDS: THIAMINE 100 MG TAB PO SCH ×2 (08:33→20:54)
[2020-12-04] MEDS: FLUoxetine 20 MG CAP PO SCH (08:33)
[2020-12-04] MEDS: FOLIC ACID 1 MG TAB PO SCH (08:33)
[2020-12-04] MEDS: PROPRANOLOL 60 MG LA CAP PO SCH (08:36)
[2020-12-04] MEDS: DOCUSATE SODIUM 100MG CAPSULE PO SCH ×2 (09:00→20:54)
[2020-12-04] MEDS: PANTOPRAZOLE 40MG TAB (PROTONIX) PO SCH ×2 (09:52→20:55)
--- NOTE | 2020-12-04 14:38 | IPNPDOC ---
Text Note Date of Service The patient was seen on 12/04/20. NOTE Subjective Chief Complaint/HPI Continues to have persistent shaking, CIWA protocol continues to be in place. Otherwise, he is tolerating his diet quite well, and he does not have any abdominal pain. we will discontinue his IV fluids at this time. Also, he has not had any events on telemetry, therefore this can be discontinued, and we'll transfer him to a [facility] floor. He understands that he will have to remain here for a few more days until his DTs are improved, but otherwise he is just happy to have the IV fluids and the telemetry discontinued so that he can take a shower. He does not have any additional questions, concerns, or complaints at this time. Remainder of his review of systems is negative. Objective Objective Physical Examination General Exam: Positive: Alert, Cooperative, No Acute Distress, Other (tremors) Eye Exam: Positive: PERRLA, Conjunctiva & lids normal, EOMI; Negative: Sclera icteric ENT Exam: Positive: Atraumatic, Mucous membr. moist/pink, Pharynx Normal Neck Exam: Positive: Supple; Negative: JVD, thyromegaly Chest Exam: Positive: Clear to auscultation, Normal air movement Heart Exam: Positive: Rate Normal, Regular Rhythm, Normal S1, Normal S2; Negative: Murmurs, Rubs Telemetry: Positive: No significant arrhythmia Abdomen Exam: Positive: Normal bowel sounds, Soft; Negative: Tenderness, Hepatospenomegaly Extremity Exam: Negative: Clubbing, Cyanosis, Edema Psych Exam: Positive: Memory Intact, Oriented x 3 Assessment/Plan Assessment /Plan Assessment This is a 40 y/o male with a pmh of HTN, depression/anxiety and etoh abuse who quit drinking cold turkey 3 days prior to admission and has been having symptoms of abdominal discomfort, nausea, vomiting, tremulousness, fatigue, weakness and anxiety. Patient saw his pcp who referred him to the ED after abnormal lab work. CT performed in the ED as stated above shows hepatic steatosis and mild pancreatic head edema suggestive of pancreatitis. he was admitted for alcohol withdrawal and acute pancreatitis. . ETOH Withdrawal [facility] protocol Serax 20mg tid scheduled thiamine, folate Acute alcoholic pancreatitis continue IVF, full liquid diet Morphine and zofran prn Hypokalemia getting replacements Alcoholic hepatitis. no need for steroids at this time. continue to monitor transaminases. HTN propranolol Depression/anxiety fluoxetine Plan/VTE VTE Prophylaxis Ordered?: Yes DISPOSOTION: -Was still having delirium tremens, and therefore will need to remain inpatient. - Discontinue IV fluids since he is tolerating an oral diet without abdominal pain, pancreatitis appears to have resolved - Discontinue telemetry, has not had any events since admission -Transfer to [facility] floor VS,Vamsibone, I+O VS, [facility], I[facility] Laboratory Tests 12/04/20 05:27 Vital Signs Date Time Temp Pulse Resp B/P (MAP) Pulse Ox O2 Delivery O2 Flow Rate FiO2 12/04/20 08:36 70 153/105 12/04/20 07:28 97.5 18 98 Room Air I&O- Last 24 Hours up to 6 AM 12/04/20 06:00 Intake Total 4440 ml Output Total 1925 ml Balance 2515 ml DWAIN BOLES DO December 04, 2020 14:38
[2020-12-05 04:30] VITALS: BP 161/94
[2020-12-05 04:39] VITALS: BP 161/94
[2020-12-05 07:00] LABS: MEAN CORPUSCULAR HEMOGLOBIN 32.9 pg (27.0-33.0); MEAN CORPUSCULAR HGB CONC 34.1 g/dl (32.0-36.5); MEAN CORPUSCULAR VOLUME 96.2 fl (80.0-96.0); PLATELET COUNT, AUTOMATED 129 10^3/uL (150-450); RED BLOOD COUNT 4.26 10^6/uL (4.30-6.10); WHITE BLOOD COUNT 5.1 10^3/uL (4.0-10.0)
[2020-12-05 07:21] LABS: ALBUMIN 2.9 GM/DL (3.2-5.2); ALT/SGPT 294 U/L (12-78); BILIRUBIN,TOTAL 1.1 MG/DL (0.2-1.0); BLOOD UREA NITROGEN 7 MG/DL (7-18); CALCIUM LEVEL 9.1 MG/DL (8.5-10.1); CARBON DIOXIDE LEVEL 25 MEQ/L (21-32); CHLORIDE LEVEL 101 MEQ/L (98-107); CREATININE FOR GFR 0.72 MG/DL (0.70-1.30); GLOMERULAR FILTRATION RATE > 60.0 (>60); GLUCOSE, FASTING 133 MG/DL (70-100); LIPASE 1274 U/L (73-393); MAGNESIUM LEVEL 2.1 MG/DL (1.8-2.4); POTASSIUM SERUM 3.1 MEQ/L (3.5-5.1); SODIUM LEVEL 135 MEQ/L (136-145); TOTAL PROTEIN 6.8 GM/DL (6.4-8.2)
[2020-12-05 07:33] VITALS: BP 132/92
[2020-12-05 08:29] LABS: TRIGLYCERIDES LEVEL 163 MG/DL (<150)
[2020-12-05] MEDS: SUCRALFATE SUSP 1GM/10ML UD PO SCH ×4 (08:40→21:36)
[2020-12-05] MEDS: PANTOPRAZOLE 40MG TAB (PROTONIX) PO SCH ×2 (08:41→21:36)
[2020-12-05] MEDS: MULTIVITAMINS/MINERALS THERAP 1 TAB PO SCH (08:41)
[2020-12-05] MEDS: FLUoxetine 20 MG CAP PO SCH (08:41)
[2020-12-05] MEDS: FOLIC ACID 1 MG TAB PO SCH (08:42)
[2020-12-05] MEDS: OXAZEPAM 10 MG CAP PO SCH ×3 (08:42→21:36)
[2020-12-05] MEDS: PROPRANOLOL 60 MG LA CAP PO SCH (08:42)
[2020-12-05] MEDS: THIAMINE 100 MG TAB PO SCH (08:45)
[2020-12-05] MEDS: DOCUSATE SODIUM 100MG CAPSULE PO SCH ×2 (09:00→21:36)
[2020-12-05] MEDS ORDERED: POTASSIUM CHLORIDE 10 MEQ SR TABLET PO ONE (09:00)
--- NOTE | 2020-12-05 09:32 | IPNPDOC ---
Text Note Date of Service The patient was seen on 12/05/20. NOTE Subjective: Patient is a 40-year-old male with a PMHx of HTN, Alcohol abuse, Depression / Anxiety , who presented to the emergency room after he quit drin joe alcohol 3 days prior and began having symptoms of abdominal discomfort, nausea, vomiting, tremulousness and weakness. Upon arrival to emergency room, patient was found to have acute pancreatitis and was admitted to the hospital service for further evaluation and treatment. He was also noted to have symptoms of alcohol withdrawal. Patient was seen and examined at the bedside. Patient is sitting up in chair, appears to be comfortable. Denies any nausea, vomiting, abdominal pain, diarrhea, or urinary discomfort. Patient reports that he has been able to tolerate a full breakfast without any difficulties. Patient reports that his symptoms of withdrawal have had some improvement Objective: Vitals (See below) General: Sitting up in chair, appears to be comfortable, not in any acute distress, is awake, alert and oriented 3 HEENT: NC, AT CVS: +S1S2 Lungs: Fair air entry b/l, -w/r/r Abdomen: Soft, ND, NT Extremities: - Edema, - Calf tenderness Imaging: CT abdomen / pelvis 12/02: 1. Questionable subtle edema adjacent to the pancreatic uncinate process. Correlate with serum amylase and lipase levels. 2. Additional findings, as above. Assessment and plan: Alcohol withdrawal - Patient has reported that his symptoms have had improvement - Continue with thiamine, folate, multivitamins - c/w CIWA protocol with Ativan - Will reduce dose of Serax s/p Acute pancreatitis - likely 2/2 Alcohol - Patient denies any abdominal pain, nausea, vomiting - Is without any abdominal tenderness - Lipase noted - Imaging noted above - Status post IV fluids - Edema symptomatically control with Zofran; will DC Morphine - Diet full advanced Hypokalemia - Will supplement Alcoholic hepatitis - DF < 32 - Will check hepatitis profile - c/w supportive care HTN - BP well controlled - c/w Propranolol Depression / Anxiety - c/w Fluoxetine GI prophylaxis - c/w Protonix DVT prophylaxis - c/w TEDs/Sequentials Deposition: - Awaiting clinical improvement VS,Fishbone, I+O VS, Fishbone, I+O Laboratory Tests 12/05/20 05:23 Vital Signs Date Time Temp Pulse Resp B/P (MAP) Pulse Ox O2 Delivery O2 Flow Rate FiO2 12/05/20 08:42 72 132/92 12/05/20 07:33 97.4 18 97 Room Air I&O- Last 24 Hours up to 6 AM 12/05/20 06:00 Intake Total 2040 ml Output Total 500 ml Balance 1540 ml MO DOMÍNGUEZ MD December 05, 2020 09:32
[2020-12-05 15:44] VITALS: BP 140/93
[2020-12-05 21:34] VITALS: BP 158/103
[2020-12-06 04:51] VITALS: BP 143/93
[2020-12-06 06:18] LABS: HEMATOCRIT 41.8 % (42.0-52.0); HEMOGLOBIN 14.4 g/dl (13.5-17.5); MEAN CORPUSCULAR HGB CONC 34.4 g/dl (32.0-36.5); MEAN CORPUSCULAR VOLUME 95.9 fl (80.0-96.0); PLATELET COUNT, AUTOMATED 145 10^3/uL (150-450); RED BLOOD COUNT 4.36 10^6/uL (4.30-6.10); WHITE BLOOD COUNT 6.2 10^3/uL (4.0-10.0)
[2020-12-06 06:44] LABS: ALBUMIN 3.1 GM/DL (3.2-5.2); ALT/SGPT 413 U/L (12-78); BLOOD UREA NITROGEN 7 MG/DL (7-18); CALCIUM LEVEL 8.9 MG/DL (8.5-10.1); CARBON DIOXIDE LEVEL 25 MEQ/L (21-32); CHLORIDE LEVEL 103 MEQ/L (98-107); CREATININE FOR GFR 0.68 MG/DL (0.70-1.30); GLOMERULAR FILTRATION RATE > 60.0 (>60); GLUCOSE, FASTING 120 MG/DL (70-100); MAGNESIUM LEVEL 2.4 MG/DL (1.8-2.4); POTASSIUM SERUM 3.7 MEQ/L (3.5-5.1); SODIUM LEVEL 137 MEQ/L (136-145); TOTAL PROTEIN 6.5 GM/DL (6.4-8.2)
[2020-12-06 08:00] VITALS: BP 145/92
[2020-12-06] MEDS: PROPRANOLOL 60 MG LA CAP PO SCH (08:19)
[2020-12-06] MEDS: FOLIC ACID 1 MG TAB PO SCH (08:20)
[2020-12-06] MEDS: PANTOPRAZOLE 40MG TAB (PROTONIX) PO SCH ×2 (08:20→20:46)
[2020-12-06] MEDS: SUCRALFATE SUSP 1GM/10ML UD PO SCH ×4 (08:20→20:45)
[2020-12-06] MEDS: MULTIVITAMINS/MINERALS THERAP 1 TAB PO SCH (08:20)
[2020-12-06] MEDS: FLUoxetine 20 MG CAP PO SCH (08:20)
[2020-12-06] MEDS: DOCUSATE SODIUM 100MG CAPSULE PO SCH ×2 (08:21→20:46)
[2020-12-06] MEDS: OXAZEPAM 10 MG CAP PO SCH (08:26)
--- NOTE | 2020-12-06 09:14 | IPNPDOC ---
Text Note Date of Service The patient was seen on 12/06/20. NOTE Subjective: Patient is a 40-year-old male with a PMHx of HTN, Alcohol abuse, Depression / Anxiety , who presented to the emergency room after he quit drin joe alcohol 3 days prior and began having symptoms of abdominal discomfort, nausea, vomiting, tremulousness and weakness. Upon arrival to emergency room, patient was found to have acute pancreatitis and was admitted to the hospital service for further evaluation and treatment. He was also noted to have symptoms of alcohol withdrawal. Patient was seen and examined at the bedside. Patient reports he has had an uneventful evening. Patient reports his symptoms of alcohol withdrawal have essentially subsided. He denies any nausea, vomiting, chest pain, shortness breath, palpitations, abdominal pain or diarrhea. Objective: Vitals (See below) General: Patient sitting up in bed, appears to be comfortable ambulate within the room, is awake, alert, oriented 3 HEENT: NC, AT CVS: +S1S2 Lungs: Fair air entry b/l, no evidence of wheezing, rales, rhonchi Abdomen: Soft, nondistended, nontender Extremities: No evidence of edema, - Calf tenderness Imaging: CT abdomen / pelvis 12/02: 1. Questionable subtle edema adjacent to the pancreatic uncinate process. Correlate with serum amylase and lipase levels. 2. Additional findings, as above. Assessment and plan: Alcohol withdrawal - Continues to report improvement of symptoms - Continue with thiamine, folate, multivitamins - c/w CIWA protocol with Ativan - Will again dose of Serax; discontinue by tonight - Anticipate DC home tomorrow s/p Acute pancreatitis - likely 2/2 Alcohol - Patient denies any abdominal pain, nausea, vomiting - Is without any abdominal tenderness - Lipase noted - Imaging noted above - Status post IV fluids - Edema symptomatically control with Zofran; will DC Morphine - Diet full advanced s/p Hypokalemia - Will supplement Alcoholic hepatitis - DF < 32 - Hepatitis profile pending - c/w supportive care HTN - BP well controlled - c/w Propranolol Depression / Anxiety - c/w Fluoxetine GI prophylaxis - c/w Protonix DVT prophylaxis - c/w TEDs/Sequentials Deposition: - Anticipate DC home tomorrow VS,Fishbone, I+O VS, Fishbone, I+O Laboratory Tests 12/06/20 05:50 Vital Signs Date Time Temp Pulse Resp B/P (MAP) Pulse Ox O2 Delivery O2 Flow Rate FiO2 12/06/20 08:19 77 145/92 12/06/20 04:51 96.5 16 96 Room Air I&O- Last 24 Hours up to 6 AM 12/06/20 06:00 Intake Total 600 ml Balance 600 ml MO DOMÍNGUEZ MD December 06, 2020 09:14
[2020-12-06 11:54] LABS: HEPATITIS B SURFACE ANTIGEN NEGATIVE (NEGATIVE)
[2020-12-06 12:00] VITALS: BP 130/86
[2020-12-06 12:22] LABS: HEPATITIS B CORE ANTIBODY IGM NEGATIVE (NEGATIVE); HEPATITIS C VIRUS ABY INDEX < 0.0 INDEX (<0.8)
[2020-12-06 12:24] LABS: HEPATITIS A ANTIBODY IGM NEGATIVE (NEGATIVE)
[2020-12-06 20:00] VITALS: BP 164/94
[2020-12-06] MEDS ORDERED: OXAZEPAM 10 MG CAP PO ONE (21:00)
[2020-12-07 04:00] VITALS: BP 131/79
[2020-12-07 05:44] LABS: HEMATOCRIT 41.2 % (42.0-52.0); HEMOGLOBIN 14.1 g/dl (13.5-17.5); MEAN CORPUSCULAR HEMOGLOBIN 33.6 pg (27.0-33.0); MEAN CORPUSCULAR HGB CONC 34.2 g/dl (32.0-36.5); MEAN CORPUSCULAR VOLUME 98.1 fl (80.0-96.0); PLATELET COUNT, AUTOMATED 159 10^3/uL (150-450); WHITE BLOOD COUNT 5.5 10^3/uL (4.0-10.0)
[2020-12-07 06:07] LABS: ALT/SGPT 488 U/L (12-78); BILIRUBIN,TOTAL 0.6 MG/DL (0.2-1.0); BLOOD UREA NITROGEN 9 MG/DL (7-18); CALCIUM LEVEL 8.9 MG/DL (8.5-10.1); CARBON DIOXIDE LEVEL 29 MEQ/L (21-32); CHLORIDE LEVEL 104 MEQ/L (98-107); CREATININE FOR GFR 0.79 MG/DL (0.70-1.30); GLOMERULAR FILTRATION RATE > 60.0 (>60); GLUCOSE, FASTING 117 MG/DL (70-100); MAGNESIUM LEVEL 2.4 MG/DL (1.8-2.4); POTASSIUM SERUM 3.7 MEQ/L (3.5-5.1); SODIUM LEVEL 138 MEQ/L (136-145); TOTAL PROTEIN 6.3 GM/DL (6.4-8.2)
[2020-12-07 08:00] VITALS: BP 131/95
[2020-12-07] MEDS: SUCRALFATE SUSP 1GM/10ML UD PO SCH ×2 (08:23→11:19)
[2020-12-07] MEDS: MULTIVITAMINS/MINERALS THERAP 1 TAB PO SCH (08:23)
[2020-12-07 08:24] VITALS: BP 131/95
[2020-12-07] MEDS: FLUoxetine 20 MG CAP PO SCH (08:24)
[2020-12-07] MEDS: FOLIC ACID 1 MG TAB PO SCH (08:24)
[2020-12-07] MEDS: PROPRANOLOL 60 MG LA CAP PO SCH (08:24)
[2020-12-07] MEDS: PANTOPRAZOLE 40MG TAB (PROTONIX) PO SCH (08:24)
[2020-12-07] MEDS: DOCUSATE SODIUM 100MG CAPSULE PO SCH (08:24)
[2020-12-07] MEDS ORDERED: VITMTA PO (09:45)
[2020-12-07] MEDS ORDERED: FOLI1TAB11 PO (09:45)
--- NOTE | 2020-12-07 13:53 | DS.PDOC ---
Discharge Summary General Date of Admission Dec 02, 2020 at 18:59 Date of Discharge 12/07/2020 Discharge Summary PROCEDURES PERFORMED DURING STAY: [None]. ADMITTING DIAGNOSES / DISCHARGE DIAGNOSES: s/p Alcohol withdrawal s/p Acute pancreatitis - likely 2/2 Alcohol s/p Hypokalemia Alcoholic hepatitis HTN Depression / Anxiety GI prophylaxis DVT prophylaxis COMPLICATIONS/CHIEF COMPLAINT: Alcohol Withdrawal / Abdominal pain HISTORY OF PRESENT ILLNESS: Patient is a 40-year-old male with a PMHx of HTN, Alcohol abuse, Depression / Anxiety , who presented to the emergency room after he quit dri nking alcohol 3 days prior and began having symptoms of abdominal discomfort, nausea, vomiting, tremulousness and weakness. Upon arrival to emergency room, patient was found to have acute pancreatitis and was admitted to the hospital service for further evaluation and treatment. He was also noted to have symptoms of alcohol withdrawal. HOSPITAL COURSE: s/p Alcohol withdrawal - Patient does not have any symptoms of alcohol withdrawal at this time - c/w Thiamine, Folate, Multivitamins - c/w CIWA protocol with Ativan - s/p Serax - Will have outpatient follow-up with primary care provider within the next 7 days as well as addiction services s/p Acute pancreatitis - likely 2/2 Alcohol - Patient denies any abdominal pain, nausea, vomiting - Physical is without abdominal tenderness - Lipase noted - Imaging noted above - s/p IV fluids - s/p Morphine - Diet full advanced s/p Hypokalemia Alcoholic hepatitis - DF < 32 - Hepatitis profile pending - c/w supportive care HTN - BP well controlled - c/w Propranolol Depression / Anxiety - c/w Fluoxetine GI prophylaxis - c/w Protonix DVT prophylaxis - c/w TEDs/Sequentials DISCHARGE MEDICATIONS: Please see below. ALLERGIES: Please see below. PHYSICAL EXAMINATION ON DISCHARGE: Vitals (See below) General: Patient is sitting up in bed, appears to be comfortable, not in any acute distress, awake, alert and oriented to person, place and time HEENT: NC, AT CVS: +S1S2 Lungs: Air entry is fair bilaterally without any evidence of wheezing, crackles or rhonchi Abdomen: Abdomen remains soft without any distention or tenderness Extremities: Lower tremors do not reveal any significant pitting edema, - Calf tenderness LABORATORY DATA: Please see below. IMAGING: CT abdomen / pelvis 12/02: 1. Questionable subtle edema adjacent to the pancreatic uncinate process. Correlate with serum amylase and lipase levels. 2. Additional findings, as above. ACTIVITY: [As tolerated]. DISCHARGE PLAN: Follow-up with primary care provider, and addiction services within the next 7 days Remain compliant with treatment plan and medications Return to the ER if you experience any problems DISPOSITION: Home, Self-Care. DISCHARGE CONDITION: [Stable]. TIME SPENT ON DISCHARGE: 35 minutes. Vital Signs/I&Os Vital Signs Date Time Temp Pulse Resp B/P (MAP) Pulse Ox O2 Delivery O2 Flow Rate FiO2 12/07/20 08:24 83 131/95 12/07/20 08:00 96.3 18 97 Room Air I&O- Last 24 Hours up to 6 AM 12/07/20 06:00 Intake Total 675 ml Output Total 0 ml Balance 675 ml Laboratory Data Labs 24H Laboratory Tests 2 12/07/20 05:24: Nucleated Red Blood Cells % (auto) 0.0, Anion Gap 5L, Glomerular Filtration Rate > 60.0, Calcium Level 8.9, Magnesium Level 2.4, Total Bilirubin 0.6, Aspartate Amino Transf (AST/SGOT) 503H, Alanine Aminotransferase (ALT/SGPT) 488H, Alkaline Phosphatase 109, Total Protein 6.3L, Albumin 3.0L, Albumin/Globulin Ratio 0.9 CBC/BMP Laboratory Tests 12/07/20 05:24 Microbiology Microbiology 12/02/20 Blood Culture - Preliminary, Resulted No Growth after 72 hours. All specime... Discharge Medications Scheduled Fluoxetine Hcl (Fluoxetine HCl) 20 Mg Cap, 20 MG PO DAILY, (Reported) Folic Acid (Folic Acid) 1 Mg Tablet, 1 MG PO DAILY Multivitamins (Thera M Plus Tablet) 1 Each Tablet, 1 TAB PO DAILY Pantoprazole Sodium (Pantoprazole Sodium) 40 Mg Tablet.dr, 40 MG PO BID, (Reported) NEW MED - HAS NOT STARTED Propranolol HCl (Propranolol HCl ER) 60 Mg Cap.sa.24h, 60 MG PO DAILY, (Reported) NEW MED - HAS NOT STARTED Sucralfate (Sucralfate) 1 Gm/10 Ml Oral.susp, 10 ML PO ACHS, (Reported) NEW MED - HAS NOT STARTED Allergies Coded Allergies: No Known Allergies (Unverified , 11/11/17) MO DOMÍNGUEZ MD December 07, 2020 13:53
== END 2020-12-07 12:32 | disposition home health service (06) | DRG 282 ==
LOC: M ED 15:43 → M ED INP 18:59 → ENRESERV 20:00 → M PCU 20:58
PROVIDERS: ADMIT Family Medicine; ATTEND Internal Medicine
DX: K85.20 Alcohol induced acute pancreatitis without necrosis or infection (principal); F10.231 Alcohol dependence with withdrawal delirium; K70.10 Alcoholic hepatitis without ascites; E87.6 Hypokalemia; I10 Essential (primary) hypertension; F41.9 Anxiety disorder, unspecified; F32.9 Major depressive disorder, single episode, unspecified; Z79.899 Other long term (current) drug therapy

== ENCOUNTER → 2021-01-14 | Outpatient (CLI) | payer OTHER ==
[~2021-01-14] MED LIST changes: +FOLI1TAB11 PO; +PANT40TA29 PO; +PROP60CA PO; +SUCR1ORA2 PO; +VITMTA PO
--- NOTE | 2021-01-14 08:42 | REP ---
INDICATION: N COMPARISON: None. TECHNIQUE: AP, lateral, bilateral oblique, and coned-down views of the lumbar spine. FINDINGS: Alignment and lordosis maintained. Vertebral bodies are intact. Disc spaces are relatively normal/age-appropriate. No acute fracture/compression injury or subluxation. No obvious spondylolysis or spondylolisthesis.. IMPRESSION: Essentially normal age-appropriate lumbosacral Spine series. <Electronically signed by Avery Mendez > 01/14/21 1982
== END ==
LOC: M ADAMS 07:54
PROVIDERS: ATTEND Physician Assistant
DX: M54.31 Sciatica, right side (principal)

== ENCOUNTER → 2021-12-09 | Outpatient (REF) | payer OTHER | LOC: M SFHCADAM 12:30 | PROVIDERS: ATTEND Family Medicine | DX: J06.9 Acute upper respiratory infection, unspecified (principal) ==

== ENCOUNTER → 2022-08-17 | Outpatient (REF) | payer OTHER ==
[2022-08-17 13:52] LABS: HEMATOCRIT 50.6 % (42.0-52.0); MEAN CORPUSCULAR HEMOGLOBIN 30.5 pg (27.0-33.0); MEAN CORPUSCULAR HGB CONC 33.6 g/dl (32.0-36.5); MEAN CORPUSCULAR VOLUME 90.7 fl (80.0-96.0); PLATELET COUNT, AUTOMATED 304 10^3/uL (150-450); RED BLOOD COUNT 5.58 10^6/uL (4.30-6.10); WHITE BLOOD COUNT 6.5 10^3/uL (4.0-10.0)
[2022-08-17 15:39] LABS: ALKALINE PHOSPHATASE 117 U/L (46-116); ALT/SGPT 157 U/L (7.0-40); AST/SGOT 154 U/L (<34); BILIRUBIN,TOTAL 1.1 MG/DL (0.3-1.2); BLOOD UREA NITROGEN 16 MG/DL (9-23); CALCIUM LEVEL 9.6 MG/DL (8.5-10.1); CARBON DIOXIDE LEVEL 23 MMOL/L (20-31); CHLORIDE LEVEL 101 MMOL/L (98-107); CHOLESTEROL LEVEL 258 MG/DL (<200); CHOLESTEROL RISK RATIO 5.33 (<5); CREATININE FOR GFR 0.74 MG/DL (0.70-1.30); GLOMERULAR FILTRATION RATE > 60.0 (>60); GLUCOSE, FASTING 86 MG/DL (60-100); HDL CHOLESTEROL 48.4 MG/DL (>40); NON-HDL-C 210 MG/DL; POTASSIUM SERUM 4.3 MMOL/L (3.5-5.1); SODIUM LEVEL 135 MMOL/L (136-145); TOTAL PROTEIN 7.8 G/DL (5.7-8.2); TRIGLYCERIDES LEVEL 128 MG/DL (<150)
== END ==
LOC: M SFHCADAM 09:15
PROVIDERS: ATTEND Family Medicine
DX: F41.9 Anxiety disorder, unspecified (principal); F10.20 Alcohol dependence, uncomplicated; Z12.5 Encounter for screening for malignant neoplasm of prostate; K76.0 Fatty (change of) liver, not elsewhere classified

== ENCOUNTER → 2023-06-08 | Outpatient (REF) | payer OTHER ==
[~2023-06-08] MED LIST changes: +LIDO15SO SSP; -LIDO2SOL17 SSP
[2023-06-08 17:28] LABS: HEMATOCRIT 52.2 % (42.0-52.0); HEMOGLOBIN 17.2 g/dl (13.5-17.5); MEAN CORPUSCULAR HEMOGLOBIN 31.6 pg (27.0-33.0); PLATELET COUNT, AUTOMATED 318 10^3/uL (150-450); RED BLOOD COUNT 5.44 10^6/uL (4.30-6.10)
[2023-06-08 17:48] LABS: HEMOGLOBIN A1c 5.5 % (4.0-6.0)
[2023-06-08 18:04] LABS: ALBUMIN 3.9 G/DL (3.2-5.2); ALKALINE PHOSPHATASE 129 U/L (46-116); ALT/SGPT 232 U/L (7.0-40); AST/SGOT 233 U/L (<34); BLOOD UREA NITROGEN 9 MG/DL (9-23); CALCIUM LEVEL 9.8 MG/DL (8.5-10.1); CARBON DIOXIDE LEVEL 26 MMOL/L (20-31); CHLORIDE LEVEL 98 MMOL/L (98-107); CHOLESTEROL LEVEL 293 MG/DL (<200); CHOLESTEROL RISK RATIO 5.47 (<5); FREE T4 1.03 NG/DL (0.89-1.76); GLOMERULAR FILTRATION RATE > 60.0 (>60); GLUCOSE, FASTING 106 MG/DL (60-100); HDL CHOLESTEROL 53.5 MG/DL (>40); LDL CHOLESTEROL 207.9 MG/DL (<100); NON-HDL-C 239.5 MG/DL; POTASSIUM SERUM 4.5 MMOL/L (3.5-5.1); SODIUM LEVEL 136 MMOL/L (136-145); THYROID STIMULATING HORMONE 1.666 uIU/ML (0.55-4.78); TRIGLYCERIDES LEVEL 158 MG/DL (<150)
== END ==
LOC: M SFHCADAM 13:11
PROVIDERS: ATTEND Family Medicine
DX: E78.00 Pure hypercholesterolemia, unspecified (principal); F41.1 Generalized anxiety disorder; Z13.1 Encounter for screening for diabetes mellitus; F10.20 Alcohol dependence, uncomplicated

== ENCOUNTER → 2023-09-26 | Outpatient (REF) | payer OTHER ==
[~2023-09-26] MED LIST changes: -CHLO25CA PO; +CHLO25CA10 PO
[2023-09-26 13:20] LABS: INR 1.06; PROTHROMBIN TIME 13.5 SECONDS (12.5-14.5)
[2023-09-26 13:25] LABS: PSA SCREENING 0.83 NG/ML (< 4.00)
[2023-09-26 13:27] LABS: ALBUMIN 3.8 G/DL (3.2-5.2); ALKALINE PHOSPHATASE 127 U/L (46-116); ALT/SGPT 91 U/L (7.0-40); AST/SGOT 103 U/L (<34); BILIRUBIN,TOTAL 0.9 MG/DL (0.3-1.2); BLOOD UREA NITROGEN 11 MG/DL (9-23); CALCIUM LEVEL 8.9 MG/DL (8.5-10.1); CARBON DIOXIDE LEVEL 27 MMOL/L (20-31); CHLORIDE LEVEL 105 MMOL/L (98-107); CHOLESTEROL LEVEL 213 MG/DL (<200); CHOLESTEROL RISK RATIO 3.11 (<5); CREATININE FOR GFR 0.83 MG/DL (0.70-1.30); GLOMERULAR FILTRATION RATE > 60.0 (>60); GLUCOSE, FASTING 122 MG/DL (60-100); HDL CHOLESTEROL 68.4 MG/DL (>40); LDL CHOLESTEROL 121.2 MG/DL (<100); NON-HDL-C 144.6 MG/DL; POTASSIUM SERUM 4.4 MMOL/L (3.5-5.1); SODIUM LEVEL 138 MMOL/L (136-145); TOTAL PROTEIN 7.6 G/DL (5.7-8.2); TRIGLYCERIDES LEVEL 117 MG/DL (<150)
== END ==
LOC: M SFHCADAM 08:38
PROVIDERS: ATTEND Family Medicine
DX: K76.0 Fatty (change of) liver, not elsewhere classified (principal); K70.9 Alcoholic liver disease, unspecified; E78.00 Pure hypercholesterolemia, unspecified; Z80.42 Family history of malignant neoplasm of prostate

== ENCOUNTER → 2023-10-18 | Outpatient (CLI) | payer OTHER ==
[~2023-10-18] MED LIST changes: -LIDO15SO SSP; +LIDO15SO8 SSP
== END ==
LOC: M ADAMS 09:23
PROVIDERS: ATTEND Family Medicine
DX: M54.50 Low back pain, unspecified (principal); Y93.53 Activity, golf

== ENCOUNTER → 2023-11-06 | Outpatient (CLI) | payer OTHER | LOC: M WHC 09:27 | PROVIDERS: ATTEND Family Medicine | DX: K70.9 Alcoholic liver disease, unspecified (principal); K76.0 Fatty (change of) liver, not elsewhere classified ==

== ENCOUNTER 2024-04-05 08:20 | Emergency (ER) | payer OTHER ==
[~2024-04-05] VITALS: Ht 175.3 cm; Wt 90.6 kg
[~2024-04-05 08:20] MED LIST changes: +FLUO-365 PO; -FLUO20CA22 PO; +ONDA-282 PO; -ONDA4TAB6 PO
[2024-04-05] MEDS ORDERED: CLON0.5T2 (08:26)
[2024-04-05] MEDS ORDERED: EZET10TA21 (08:26)
[2024-04-05] MEDS ORDERED: LOSA25TA13 (08:26)
[2024-04-05] MEDS: NS 1,000 ML IV ONE ×2 (08:56→10:02)
[2024-04-05] MEDS: PANTOPRAZOLE 40MG VIAL IV ONE (08:56)
[2024-04-05] MEDS: ONDANSETRON 4MG 2ML VIAL IV ONE (08:57)
[2024-04-05] MEDS: OCTREOTIDE ACETATE 100MCG/ML VIAL **IV ADMINISTRATION ONLY IV ONE (09:10)
[2024-04-05] MEDS: THIAMINE 200MG 2ML VIAL IM ONE (09:10)
[2024-04-05 09:21] LABS: BASO % 0.4 % (0.0-1.0); HEMATOCRIT 33.7 % (42.0-52.0); HEMOGLOBIN 11.5 g/dl (13.5-17.5); LYMPH # 0.9 10^3/uL (1.5-5.0); LYMPH % 9.2 % (24.0-44.0); MEAN CORPUSCULAR HEMOGLOBIN 31.9 pg (27.0-33.0); MEAN CORPUSCULAR HGB CONC 34.1 g/dl (32.0-36.5); MEAN CORPUSCULAR VOLUME 93.6 fl (80.0-96.0); MONO # 0.8 10^3/uL (0.0-0.8); MONO % 7.9 % (2.0-8.0); NEUTROPHILS # 8.1 10^3/uL (1.5-8.5); NEUTROPHILS % 82.1 % (36.0-66.0); PLATELET COUNT, AUTOMATED 192 10^3/uL (150-450); WHITE BLOOD COUNT 9.8 10^3/uL (4.0-10.0)
[2024-04-05 09:23] LABS: VENOUS BASE EXCESS -2.1 (-2.0-2.0); VENOUS HCO3 22.3 MMOL/L (23.0-27.0); VENOUS PARTIAL PRESSURE CO2 36.6 mmHg (38.0-50.0); VENOUS PARTIAL PRESSURE O2 74.4 mmHg (30.0-50.0); VENOUS PH 7.402 UNITS (7.330-7.430); VENOUS STANDARD HCO3 22.6 MMOL/L; VENOUS TOTAL CO2 23.4 MMOL/L (24.0-28.0)
[2024-04-05] MEDS: OCTREOTIDE ACETATE 1,200 MCG in NS 238.8 ML IV SCH (09:30)
[2024-04-05 09:34] LABS: INR 1.4; PARTIAL THROMBOPLASTIN TIME 26.2 SECONDS (24.8-34.2); PROTHROMBIN TIME 16.7 SECONDS (12.5-14.5)
[2024-04-05 09:38] LABS: ALBUMIN 3.3 G/DL (3.2-5.2); BILIRUBIN,TOTAL 0.9 MG/DL (0.3-1.2); CALCIUM LEVEL 8.9 MG/DL (8.5-10.1); CREATININE FOR GFR 1.7 MG/DL (0.70-1.30); GLOMERULAR FILTRATION RATE 47.1 (>60); POTASSIUM SERUM 3.8 MMOL/L (3.5-5.1); TOTAL PROTEIN 7.2 G/DL (5.7-8.2)
[2024-04-05] MEDS: LORazepam 2 MG TAB PO PRN (09:45)
[2024-04-05 10:10] LABS: ETHYL ALCOHOL (ETHANOL) 0.366 % (0.000-0.010)
[2024-04-05 10:50] VITALS: BP 106/55; TEMP 97.2; O2SAT 96
[2024-04-05 11:07] VITALS: BP 118/55; TEMP 97.3; O2SAT 95
[2024-04-05 11:09] VITALS: BP 118/55; TEMP 97.3
[2024-04-05] MEDS: METOCLOPRAMIDE INJ 10MG/2ML VIAL IV ONE (11:17)
[2024-04-05] MEDS: PANTOPRAZOLE SODIUM 40 MG in D5W MINI-BAG PLUS 50 ML IV SCH (11:19)
[2024-04-05 11:37] VITALS: BP 113/67; TEMP 96.9; O2SAT 96
== END 2024-04-05 11:41 | disposition short-term general hospital (02) ==
LOC: M ED 08:20
DX: K92.2 Gastrointestinal hemorrhage, unspecified (principal); R00.0 Tachycardia, unspecified; I49.3 Ventricular premature depolarization; I10 Essential (primary) hypertension; E78.5 Hyperlipidemia, unspecified; K76.0 Fatty (change of) liver, not elsewhere classified; Z87.891 Personal history of nicotine dependence; F10.10 Alcohol abuse, uncomplicated; Z79.899 Other long term (current) drug therapy; Z79.811 Long term (current) use of aromatase inhibitors
CPT/HCPCS: 36430; 71045; 80053; 82077; 82803; 83605; 83690; 85025; 85610; 85730; 86850; 86900; 86901; 86920; 87040; 93005; 93041; 94760; 96365; 96366; 96372; 96375; 99285; J2354; J2405; J2470; J2765; J3411; P9016

== ENCOUNTER → 2024-04-16 | Outpatient (REF) | payer OTHER ==
[~2024-04-16] MED LIST changes: +CLON0.5T2; +EZET10TA21; +LOSA25TA13
[2024-04-16 13:43] LABS: HEMATOCRIT 37.2 % (42.0-52.0); HEMOGLOBIN 12.2 g/dl (13.5-17.5); MEAN CORPUSCULAR HGB CONC 32.8 g/dl (32.0-36.5); MEAN CORPUSCULAR VOLUME 94.7 fl (80.0-96.0); PLATELET COUNT, AUTOMATED 501 10^3/uL (150-450); RED BLOOD COUNT 3.93 10^6/uL (4.30-6.10); WHITE BLOOD COUNT 9.9 10^3/uL (4.0-10.0)
[2024-04-16 13:50] LABS: IRON (FE) 24 UG/DL (65-175); PERCENT SATURATION 5.6 % (19.7-50.0); TOTAL IRON BINDING CAPACITY 427 UG/DL (250-425)
[2024-04-16 13:52] LABS: FERRITIN 75.8 NG/ML (10.5-307.3); THYROID STIMULATING HORMONE 1.358 uIU/ML (0.55-4.78)
[2024-04-16 13:54] LABS: ALBUMIN 3.7 G/DL (3.2-5.2); ALKALINE PHOSPHATASE 120 U/L (46-116); ALT/SGPT 222 U/L (7.0-40); AST/SGOT 226 U/L (<34); BILIRUBIN,TOTAL 0.5 MG/DL (0.3-1.2); BLOOD UREA NITROGEN 11 MG/DL (9-23); CARBON DIOXIDE LEVEL 23 MMOL/L (20-31); CHLORIDE LEVEL 107 MMOL/L (98-107); CHOLESTEROL LEVEL 199 MG/DL (<200); CHOLESTEROL RISK RATIO 5.62 (<5); CREATININE FOR GFR 0.75 MG/DL (0.70-1.30); GLOMERULAR FILTRATION RATE > 60.0 (>60); GLUCOSE, FASTING 107 MG/DL (60-100); HDL CHOLESTEROL 35.4 MG/DL (>40); NON-HDL-C 163.6 MG/DL; POTASSIUM SERUM 4.4 MMOL/L (3.5-5.1); SODIUM LEVEL 137 MMOL/L (136-145); TOTAL PROTEIN 7.6 G/DL (5.7-8.2); TRIGLYCERIDES LEVEL 118 MG/DL (<150)
== END ==
LOC: M SFHCADAM 09:27
PROVIDERS: ATTEND Family Medicine
DX: F32.A Depression, unspecified (principal); E78.00 Pure hypercholesterolemia, unspecified; K76.0 Fatty (change of) liver, not elsewhere classified; K22.11 Ulcer of esophagus with bleeding

== ENCOUNTER → 2024-04-17 | Outpatient (CLI) | payer OTHER | LOC: M PLAIMG 11:07 | PROVIDERS: ATTEND Family Medicine | DX: S09.90XA Unspecified injury of head, initial encounter (principal) ==

== ENCOUNTER → 2024-08-14 | Outpatient (REF) | payer OTHER ==
[2024-08-14 13:11] LABS: HEMATOCRIT 44.2 % (42.0-52.0); MEAN CORPUSCULAR HEMOGLOBIN 25.3 pg (27.0-33.0); MEAN CORPUSCULAR HGB CONC 31.7 g/dl (32.0-36.5); MEAN CORPUSCULAR VOLUME 79.8 fl (80.0-96.0); PLATELET COUNT, AUTOMATED 326 10^3/uL (150-450); RED BLOOD COUNT 5.54 10^6/uL (4.30-6.10); WHITE BLOOD COUNT 6.2 10^3/uL (4.0-10.0)
[2024-08-14 13:13] LABS: IRON (FE) 40 UG/DL (65-175); PERCENT SATURATION 8.8 % (19.7-50.0); TOTAL IRON BINDING CAPACITY 452 UG/DL (250-425)
[2024-08-14 13:14] LABS: ALBUMIN 4.1 G/DL (3.2-5.2); ALKALINE PHOSPHATASE 96 U/L (40-129); ALT/SGPT 38 U/L (7.0-40); AST/SGOT 32 U/L (<34); BILIRUBIN,TOTAL 0.4 MG/DL (0.3-1.2); BLOOD UREA NITROGEN 16 MG/DL (9-23); CARBON DIOXIDE LEVEL 24 MMOL/L (20-31); CHLORIDE LEVEL 105 MMOL/L (98-107); CHOLESTEROL LEVEL 158 MG/DL (<200); CHOLESTEROL RISK RATIO 3.62 (<5); CREATININE FOR GFR 0.78 MG/DL (0.70-1.30); FERRITIN 6.8 NG/ML (10.5-307.3); GLOMERULAR FILTRATION RATE > 60.0 (>60); GLUCOSE, FASTING 114 MG/DL (60-100); HDL CHOLESTEROL 43.6 MG/DL (>40); LDL CHOLESTEROL 99.6 MG/DL (<100); NON-HDL-C 114.4 MG/DL; POTASSIUM SERUM 4.5 MMOL/L (3.5-5.1); SODIUM LEVEL 139 MMOL/L (136-145); TOTAL PROTEIN 8.1 G/DL (5.7-8.2); TRIGLYCERIDES LEVEL 74 MG/DL (<150)
[2024-08-14 13:31] LABS: HEMOGLOBIN A1c 5.7 % (4.0-6.0)
== END ==
LOC: M SFHCADAM 09:06
PROVIDERS: ATTEND Family Medicine
DX: K22.11 Ulcer of esophagus with bleeding (principal); K70.9 Alcoholic liver disease, unspecified; K76.0 Fatty (change of) liver, not elsewhere classified; E78.00 Pure hypercholesterolemia, unspecified

== ENCOUNTER 2024-10-17 07:00 | Day surgery (SDC) | payer OTHER ==
[~2024-10-17] VITALS: Ht 177.8 cm; Wt 87.2 kg
[~2024-10-17 07:00] MED LIST changes: -CLON0.5T2; +CLON0.5T2 PO; -EZET10TA21; +EZET10TA21 PO; +LOSA50TA28 PO
[2024-10-17] MEDS ORDERED: LIDOCAINE 2% 100MG/5ML SDV (FOR ANES.) As Ordered ONE (07:52)
[2024-10-17] MEDS ORDERED: propofoL 200 MG/20 ML VIAL As Ordered ONE (07:52)
[2024-10-17 08:14] VITALS: TEMP 97.4
[2024-10-17 08:38] VITALS: BP 129/73; O2SAT 97
== END 2024-10-17 09:00 | disposition home or self-care (01) ==
LOC: M OPP 07:00
PROVIDERS: ATTEND Surgery
DX: K21.00 Gastro-esophageal reflux disease with esophagitis, without bleeding (principal); K44.9 Diaphragmatic hernia without obstruction or gangrene; K31.89 Other diseases of stomach and duodenum; K22.89 Other specified disease of esophagus; Z79.899 Other long term (current) drug therapy; F17.290 Nicotine dependence, other tobacco product, uncomplicated

== ENCOUNTER → 2025-03-11 | Outpatient (REF) | payer OTHER ==
[~2025-03-11] MED LIST changes: -SUCR1ORA2 PO; +SUCR1ORA20 PO
[2025-03-11 19:03] LABS: PLATELET COUNT, AUTOMATED 193 10^3/uL (150-450)
[2025-03-12 00:32] LABS: ALT/SGPT 147 U/L (7.0-40); AST/SGOT 213 U/L (<34); CALCIUM LEVEL 9.2 MG/DL (8.5-10.1); CARBON DIOXIDE LEVEL 23 MMOL/L (20-31); CHLORIDE LEVEL 106 MMOL/L (98-107); CHOLESTEROL LEVEL 223 MG/DL (<200); CHOLESTEROL RISK RATIO 1.91 (<5); CREATININE FOR GFR 0.67 MG/DL (0.70-1.30); GLOMERULAR FILTRATION RATE > 90.0 (>60); IRON (FE) 106 UG/DL (65-175); LDL CHOLESTEROL 93.4 MG/DL (<100); NON-HDL-C 106.6 MG/DL; PERCENT SATURATION 25.7 % (19.7-50.0); POTASSIUM SERUM 3.8 MMOL/L (3.5-5.1); SODIUM LEVEL 140 MMOL/L (136-145); TRIGLYCERIDES LEVEL 66 MG/DL (<150)
[2025-03-12 00:34] LABS: FREE T4 1.19 NG/DL (0.89-1.76)
== END ==
LOC: M SFHCADAM 11:24
PROVIDERS: ATTEND Family Medicine
DX: K70.9 Alcoholic liver disease, unspecified (principal); E78.00 Pure hypercholesterolemia, unspecified; F41.1 Generalized anxiety disorder; E61.1 Iron deficiency

== ENCOUNTER 2025-05-05 11:41 | Emergency (ER) | payer OTHER ==
[~2025-05-05] VITALS: Ht 175.3 cm; Wt 88.6 kg
[~2025-05-05 11:41] MED LIST changes: -EZET10TA21 PO; +EZET10TA57 PO
[2025-05-05 13:07] LABS: BASO # 0.1 10^3/uL (0.0-0.2); BASO % 0.9 % (0.0-1.0); EOS # 0.0 10^3/uL (0.0-0.5); EOS % 0.3 % (0.0-3.0); LYMPH # 0.8 10^3/uL (1.5-5.0); LYMPH % 10.9 % (24.0-44.0); MONO # 0.8 10^3/uL (0.0-0.8); MONO % 11.1 % (2.0-8.0); NEUTROPHILS # 5.7 10^3/uL (1.5-8.5); NEUTROPHILS % 76.3 % (36.0-66.0); PLATELET COUNT, AUTOMATED 131 10^3/uL (150-450)
[2025-05-05 13:51] LABS: ALT/SGPT 154 U/L (7.0-40); AST/SGOT 240 U/L (<34); CALCIUM LEVEL 9.0 MG/DL (8.5-10.1); CARBON DIOXIDE LEVEL 25 MMOL/L (20-31); CHLORIDE LEVEL 96 MMOL/L (98-107); CK-MB VALUE MASS 1.4 NG/ML (<3.6); CREATININE FOR GFR 0.79 MG/DL (0.70-1.30); GLOMERULAR FILTRATION RATE > 90.0 (>60); POTASSIUM SERUM 3.3 MMOL/L (3.5-5.1); SODIUM LEVEL 132 MMOL/L (136-145)
[2025-05-05 13:56] LABS: CPK CREATINE PHOSPHOKINASE 158 U/L (46-171); MB/CK RELATIVE INDEX 0.88 (< OR =4)
[2025-05-05] MEDS ORDERED: CLON1TAB8 PO (14:16)
[2025-05-05] MEDS ORDERED: HOME MED LIST COMPLETE! XX SCH (14:20)
[2025-05-05] MEDS ORDERED: ISOVUE-370 76% 100 ML VIAL As Ordered ONE (14:35)
[2025-05-05] MEDS: ONDANSETRON 4MG 2ML VIAL IV ONE ×2 (14:39→17:31)
[2025-05-05] MEDS: MORPHINE 4 MG/ML 1 ML VIAL IV ONE (14:40)
[2025-05-05 16:25] LABS: KETONE, URINE AUTO RFX TRACE mg/dL (NEGATIVE); LEUKOCYTE ESTERASE UR AUTO RFX NEGATIVE (NEGATIVE); NITRITE, URINE AUTO RFX NEGATIVE (NEGATIVE); RBC, URINE AUTO RFX 1 /HPF (0-3); SQUAM EPITHELIAL CELL UR AURFX 0 /HPF (0-6); WBC, URINE AUTO RFX 0 /HPF (0-3)
[2025-05-05] MEDS: MORPHINE 4 MG/ML 1 ML VIAL IV PRN (17:31)
[2025-05-06] MEDS: MORPHINE 4 MG/ML 1 ML VIAL IV PRN (01:49)
[2025-05-06 01:53] VITALS: BP 166/88; TEMP 97.8; O2SAT 97
== END 2025-05-06 02:08 | disposition short-term general hospital (02) ==
LOC: M ED 11:41
DX: K80.00 Calculus of gallbladder with acute cholecystitis without obstruction (principal); I10 Essential (primary) hypertension; R16.0 Hepatomegaly, not elsewhere classified; K76.0 Fatty (change of) liver, not elsewhere classified; K57.30 Diverticulosis of large intestine without perforation or abscess without bleeding; E78.5 Hyperlipidemia, unspecified; F41.9 Anxiety disorder, unspecified; F10.10 Alcohol abuse, uncomplicated; K25.9 Gastric ulcer, unspecified as acute or chronic, without hemorrhage or perforation; Z79.899 Other long term (current) drug therapy
CPT/HCPCS: 74177; 80048; 80076; 81001; 82550; 82553; 83690; 84484; 85025; 93005; 96374; 96375; 96376; 99285; J2060; J2405; J2550; Q9967

== ENCOUNTER → 2025-05-20 | Outpatient (REF) | payer OTHER ==
[~2025-05-20] MED LIST changes: +CLON1TAB8 PO
[2025-05-20 14:12] LABS: ALT/SGPT 105 U/L (7.0-40); AST/SGOT 55 U/L (<34); CALCIUM LEVEL 9.8 MG/DL (8.5-10.1); CARBON DIOXIDE LEVEL 25 MMOL/L (20-31); CHLORIDE LEVEL 106 MMOL/L (98-107); CREATININE FOR GFR 0.88 MG/DL (0.70-1.30); GLOMERULAR FILTRATION RATE > 90.0 (>60); POTASSIUM SERUM 5.0 MMOL/L (3.5-5.1); SODIUM LEVEL 142 MMOL/L (136-145)
[2025-05-20 14:13] LABS: PLATELET COUNT, AUTOMATED 745 10^3/uL (150-450)
== END ==
LOC: M SFHCADAM 09:40
PROVIDERS: ATTEND Physician Assistant
DX: K70.9 Alcoholic liver disease, unspecified (principal)